=== PATIENT | female | born 1950 | race Caucasian/White ===

== ENCOUNTER 2020-08-16 12:03 | Emergency (ER) | payer MEDICARE ==
[~2020-08-16 12:03] MED LIST: AMARYL2 MG PO; BUMETANIDE2 MG PO; EXCEDRIN MIGRA1 EACH PO; HYDRALAZINE HCL25 MG PO; HYDROCHLOROTH12.5 MG PO; IBUPROFEN800 M1 PO; LABETALOL HCL200 MG PO; LISINOPRIL 10MG10 MG PO; MEDROL 4MG DOSEP4 MG PO; NORCO 5-325 TA1 EACH PO; POTASSIUM CHLO10 ME1 PO; PRINIVIL20 MG PO
[2020-08-16 14:02] LABS: BASOPHIL 0.8 % (0-2); EOSINOPHIL 2.8 % (0-7); HGB 9.8 g/dl (12.5-16.0); LYMPHOCYTE 13.5 % (15-48); MCH 28.2 pg (25.0-31.0); MCHC 30.6 g/dL (32.0-36.0); MONOCYTE 7.7 % (0-12); MPV 10.2 fL (6.0-9.5); NEUTROPHIL 74.8 % (41-80); NRBC 0; PLT 245 K/uL (150-400); RBC 3.48 M/uL (4.20-5.40); WBC 9.1 K/uL (4.0-10.5)
[2020-08-16 14:17] LABS: CREATININE 1.79 mg/dL (0.51-0.95); POTASSIUM 5.3 mmol/L (3.5-5.1)
[2020-08-16] MEDS ORDERED: CEPHALEXIN500 M1 PO (14:56)
== END 2020-08-16 15:34 | disposition home or self-care (01) ==
LOC: FER 12:03
PROVIDERS: Nurse Practitioner Family
DX: L03.116 Cellulitis of left lower limb (principal); L03.115 Cellulitis of right lower limb; E11.9 Type 2 diabetes mellitus without complications; I10 Essential (primary) hypertension; Z79.84 Long term (current) use of oral hypoglycemic drugs; Z79.899 Other long term (current) drug therapy
CPT/HCPCS: 36415; 80048; 83880; 85025; 99283

== ENCOUNTER 2022-01-05 19:50 | Emergency (ER) | payer MEDICARE ==
[~2022-01-05 19:50] MED LIST changes: +CEPHALEXIN500 M1 PO
[2022-01-05 20:49] LABS: BILIRUBIN NEGATIVE (NEGATIVE); BLOOD TRACE-INTACT Ery/uL (NEGATIVE); CLARITY CLEAR (CLEAR); COLOR YELLOW (YELLOW); GLUCOSE (U) NORMAL (NORMAL); LEUKOCYTES TRACE Leu/uL (NEGATIVE); NITRITE NEGATIVE (NEGATIVE); PROTEIN 2+ mg/dL (NEGATIVE); SPECIFIC GRAVITY 1.015 (1.001-1.030); UROBILINOGEN 0.2 mg/dL (0.2-1.0)
[2022-01-05 20:50] LABS: AMPHETAMINES NEGATIVE (NEGATIVE); BARBITURATES NEGATIVE (NEGATIVE); ECSTASY (MDMA) NEGATIVE (NEGATIVE); MARIJUANA (THC) NEGATIVE (NEGATIVE); METHADONE NEGATIVE (NEGATIVE); OPIATES NEGATIVE (NEGATIVE); OXYCODONE NEGATIVE (NEGATIVE)
[2022-01-05 20:56] LABS: BACTERIA TRACE; URINARY RBC RARE
[2022-01-05] MEDS ORDERED: NORCO 5-325 TA1 EACH PO (23:27)
[2022-01-05] MEDS ORDERED: CEPHALEXIN500 M1 PO (23:27)
== END 2022-01-06 00:45 | disposition home or self-care (01) ==
LOC: FER 19:50
PROVIDERS: Internal Medicine
DX: M54.50 Low back pain, unspecified (principal); R20.2 Paresthesia of skin; I10 Essential (primary) hypertension; E11.9 Type 2 diabetes mellitus without complications; Z79.84 Long term (current) use of oral hypoglycemic drugs
CPT/HCPCS: 72131; 80305; 81001